=== PATIENT | male | born 1960 | race Caucasian/White ===

== ENCOUNTER 2021-07-08 07:53 | Day surgery (SDC) | payer OTHER ==
[2021-07-08] MEDS ORDERED: Ringers Lactate 1,000 ML IV ONE (08:22)
[2021-07-08] MEDS: CEFAZOLIN/NS 1gm 1 GM/50 ML BAG IV ONE ×2 (10:00→10:23)
[2021-07-08] MEDS ORDERED: FENTANYL CITR 100 MCG/2 ML ONE (10:03)
[2021-07-08] MEDS ORDERED: propofoL 200 MG/20 ML VIAL IV ONE (10:03)
[2021-07-08] MEDS ORDERED: MIDAZOLAM HCL 2 MG/2 ML INJ ONE (10:03)
[2021-07-08] MEDS ORDERED: LIDOCAINE 1% MPF 5 ML VIAL ONE (10:03)
[2021-07-08] MEDS ORDERED: ROCURONIUM 50 MG/5 ML VIAL IV ONE (10:03)
[2021-07-08] MEDS ORDERED: LIDOCAINE JELLY 2%- 5 ML TUBE ONE (10:04)
[2021-07-08] MEDS ORDERED: BUPIVACAINE 0.25% PF 30 ML VIAL ONE (10:10)
[2021-07-08] MEDS ORDERED: NS 0.9% VIAL 10 ML ONE (10:36)
[2021-07-08] MEDS ORDERED: EPHEDRINE SULF 50 MG/ML VIAL ONE (10:36)
[2021-07-08] MEDS ORDERED: NEOSTIGMINE 1 MG/ML -5 ML ONE (10:47)
[2021-07-08] MEDS ORDERED: ONDANSETRON 4 MG/2 ML VIAL ONE (10:47)
[2021-07-08] MEDS ORDERED: GLYCOPYRROLATE 0.2 MG/ML SYR ONE (10:47)
[2021-07-08] MEDS ORDERED: KETOROLAC 30 MG/ML INJ ONE (10:47)
--- NOTE | 2021-07-08 10:48 | P.OP ---
Preoperative diagnosis: Incarcerated Umbilical Hernia Postoperative diagnosis: Incarcerated Umbilical Hernia Primary procedure: Open Repair of Incarcerated Umbilical Hernia with Mesh Anesthesia: GETA + Local Estimated blood loss: <5cc Specimen: hernia contents Findings: Incarcerated Umbilical Hernia ~2cm Implants: 4.3cm Bard Ventralex Mesh Transferred to: Recovery Room Condition: Good
--- NOTE | 2021-07-08 12:38 | OP ---
Date of Procedure: 07/08/2021 Surgeon: Robert Suarez MD, Preoperative Diagnosis: Incarcerated umbilical hernia. Postoperative Diagnosis: Incarcerated umbilical hernia. Procedure Performed: Open repair of incarcerated umbilical hernia with mesh. Anesthesia: General endotracheal plus local with 0.25% Marcaine. Estimated Blood Loss: Less than 5 mL. Specimens: Hernia contents. Findings: Incarcerated umbilical hernia approximately 2 cm. Implants: 4.3 cm Bard Ventralex mesh. Disposition: The patient was transferred to recovery room in good condition. Procedure In Detail: After informed consent was obtained, the patient was brought to the operating r oom, prepped and draped in the usual sterile fashion after adequate anesthesia achieved. The infraum bilical area was anesthetized with 0.25% Marcaine, sharply incised with a 15 blade down through subcu taneous tissues. Electrocautery was used to dissect down to expose the hernia sac circumferentially. The hernia sac was grasped, elevated, and entered sharply with Metzenbaum scissors. The hernia sac was immediately encountered. It was irreducible at this point consistent with incarcerated umbilica l hernia. The hernia sac contents were then removed and delivered into the surgical field, ligated w ith electrocautery. At this point, good hemostasis was achieved. The specimen was passed off for pa thologic examination. I then palpated the hernia defect, found to be approximately 2 cm. I circumfe rentially swept any preperitoneal fat out of the way and allowed for good landing zone of the mesh. I then brought in a 4.3 cm Bard Ventralex mesh circumferentially with deployment system. I then circumferentially parachuted in the mesh in the preperitoneal space using 2-0 PDS sutures. I then imbricated the closure over the top and trimmed the mesh tail appropriately at this point. The primary defect was closed using 0 PDS suture in a running fashion. I then irrigated the area copious ly. I reapproximated the umbilicus fascial tissue to the hernia repair to invert the umbilicus in no rmal anatomic position with 3-0 Vicryl. I then irrigated the area copiously and suctioned until comp letely dry. I then closed the deep dermal plane with interrupted 3-0 Vicryl sutures and skin with 4- 0 Monocryl in a running fashion. Dermabond placed over top. The patient tolerated the procedure wel l without evidence of complication and transferred to PACU in good condition. All counts were correc t at the end of the case. ORTEGA/MAKENNA Voice ID: [id number] Report ID: [id number]
[2021-07-08 13:05] VITALS: BP 106/60; TEMP 97.6; O2SAT 96
== END 2021-07-08 12:15 | disposition home or self-care (01) ==
LOC: OR 07:53
PROVIDERS: ATTEND Surgery
PROC: 0WUF0JZ Supplement Abdominal Wall with Synthetic Substitute, Open Approach (ICD-10-PCS; principal; 2021-07-08 09:15)
DX: K42.0 Umbilical hernia with obstruction, without gangrene (principal); Z20.822 Contact with and (suspected) exposure to COVID-19
CPT/HCPCS: 88302; 49585; U0003; J2704; J2250; J3010; J2710; J0690; J7120; J2405